=== PATIENT | female | born 1950 | race Caucasian/White ===

== ENCOUNTER 2019-11-15 09:42 | Outpatient (CLI) | payer MEDICARE, SELFPAY ==
--- NOTE | ~2019-11-15 | XR_ITS ---
EXAMINATION: XR chest 2V DATE: 11/15/2019 09:59 INDICATION: Cough. TECHNIQUE: Frontal and lateral views of the chest were obtained. COMPARISON: CT abdomen and pelvis 12/22/2012 FINDINGS: A calcified left lung nodule and calcified mediastinal lymph nodes are consistent with old granulomatous disease. No pleural effusion or pneumothorax. The heart size is normal. There are surgi al clips in the abdomen. There are changes of anterior fusion procedure in cervical spine. There is a left shoulder arthroplasty. IMPRESSION: 1. No acute cardiopulmonary disease. Reviewed, dictated and finalized at location A.
== END 2019-11-15 09:43 | disposition home or self-care (01) ==
LOC: ANHIMG 09:45
PROVIDERS: PCP Internal Medicine; Visit Provider Internal Medicine
DX: R05 Cough (principal)
CPT/HCPCS: 71046

== ENCOUNTER 2019-11-18 11:51 | Emergency (ER) | payer MEDICARE, SELFPAY ==
--- NOTE | ~2019-11-18 | CT_ITS ---
EXAMINATION: CT abdomen pelvis w con DATE: 11/18/2019 13:38 INDICATION: Ventral hernia. Nausea. TECHNIQUE: Computed tomography (CT) of the abdomen and pelvis was performed with 100 mL Omnipaque 350 intravenous contrast. Automated exposure control and iterative reconstruction technique were employe d. The dose-length product was 708.54 mGy-cm. COMPARISON: CT abdomen and pelvis 12/22/2012 FINDINGS: The visualized portions of the lung bases demonstrate mild atelectasis. No pleural effusion . The heart size is normal. There are coronary artery calcifications. No pericardial effusion. There is chronic mild intrahepatic biliary duct dilatation, likely secondary to cholecystectomy. Calcificat ions in the spleen are consistent with old granulomatous disease. The pancreas and adrenal glands are normal. There is cortical thinning of the kidneys. There is a left inguinal hernia containing fat. T here is diverticulosis of the colon without evidence of diverticulitis. There are changes of appendec tristian. There are multiple supraumbilical ventral hernias containing fat. There are no pathologically e nlarged lymph nodes. There is no free intraperitoneal fluid. There are changes of gastric bypass proc edure. There is mild lumbar spondylosis. IMPRESSION: 1. Multiple supraumbilical ventral hernias containing fat. 2. Left inguinal hernia containing fat. Reviewed, dictated and finalized at location A.
[2019-11-18 11:55] VITALS: BP 169/73; PULSE 84; RESP 16; TEMP 37.2; O2SAT 97
[2019-11-18 12:13] VITALS: BP 141/61; PULSE 86; RESP 20; TEMP 36.4; O2SAT 98
--- NOTE | 2019-11-18 12:33 | ED.GENADULT ---
HPI - General Adult General Chief complaint: Unspecified Stated complaint: Multiple Complaints, x3 weeks Time Seen by Provider: 11/18/19 12:02 History of Present Illness HPI narrative: 69 yo female with h/o GERD, gastritis, gastric bypass, ventral abdominal hernia presents from home for nausea. She reports that she has been nauseated for three weeks. She has not been vomiting, but she does have abdominal discomfort with eating. Additionally she reports sore throat. Worse with eating or coughing. This is associated with diarrhea and fatigue. She saw her PCP 2 days ago and had negative CXR and COVID-[address] Garcia and her told her to come to the ED before seeing him in the office. Related Data Allergies Allergy/AdvReac Type Severity Reaction Status Date / Time aspirin Allergy Unknown Unknown Verified 11/18/19 12:15 codeine Allergy Unknown Unknown Verified 11/18/19 12:15 morphine AdvReac Intermediate UPSET Verified 11/18/19 12:15 STOMACH salicylates AdvReac Intermediate UPSET Verified 11/18/19 12:15 STOMACH Review of Systems Review of Systems: All systems reviewed & are unremarkable except as noted in HPI and below Constitutional: Constitutional: Reports fatigue and Denies fever(s) ENT: Reports sore throat Cardiovascular: Cardiovascular: Denies chest pain Respiratory: Respiratory: Reports cough and Denies dyspnea Gastrointestinal: Gastrointestinal: Reports abdominal pain, Reports bloating, Reports diarrhea, Reports nausea and Denies vomiting Genitourinary: Genitourinary: Denies hematuria and Denies dysuria Musculoskeletal: Musculoskeletal: Denies back pain Neurologic: Denies syncope, Reports headache(s) and Denies weakness Endocrine: Endocrine: Denies polydipsia Hematologic/Lymphatic: Hematologic/Lymphatic: Denies easy bleeding and Denies easy bruising PMF Past Medical History Medical History Hyperlipidemia Mild episode of recurrent major depressive disorder Vitamin B12 deficiency Vitamin D deficiency Surgical History Surgical History Hx of fusion of cervical spine Hx of gastric bypass Status post reverse total replacement of left shoulder Family History Family History Father Family history of cardiovascular disease Malignant neoplasm of prostate Sibling Family history of malignant neoplasm of gastrointestinal tract Mother Family history of malignant neoplasm of ovary Social History Social History Smoking status: Former smoker Second hand tobacco smoke exposure: No Smoking end date: 02/17/80 Alcohol intake: never Exam Const: General: healthy appearing, no acute distress and alert Nutritional Appearance: well nourished Orientation/consciousness: patient oriented x3 HENMT: Head: normal to inspection Neck: Neck: normal visual inspection and no lymphadenopathy Resp: Effort & Inspection: normal respiratory effort Auscultation: clear to auscultation bilaterally, no rales, no rhonchi and no wheezes Cardio: Jugular venous distension: no JVD Rate: regular rate Rhythm: regular rhythm Heart sounds: no murmurs GI: Inspection: non-distended GI Palp: Yes Soft to palpation, No Tenderness to palpation present (GI) and Yes Hernia present (large, soft, easily reducible ventral) Skin: General skin exam: normal color and no pallor Neuro: General: patient oriented x3 and moves all extremities Speech: normal speech Gait exam (Neuro): Normal gait present Extrem: General: no edema Psych: Appearance: well kempt Affect: normal affect Course Vital Signs Vital signs: Vital Signs Temperature 37.2 C 11/18/19 11:55 Pulse Rate 84 11/18/19 11:55 Respiratory Rate 16 11/18/19 11:55 Blood Pressure 169/73 H 11/18/19 11:55 Pulse Oximetry 9
[2019-11-18 12:51] LABS: Basophils Absolute Auto 0.1 K/mm3 (0.0-0.1); Eosinophils Absolute Auto 0.2 K/mm3 (0-0.3); Eosinophils Percent Auto 2.9 % (0-4.4); Immature Granulocyte Absolute 0.02 K/mm3 (0.00-0.031); Immature Granulocyte Percent A 0.3 % (0-0.5); Lymphocytes Absolute Auto 2.04 K/mm3 (0.9-3.2); Lymphocytes Percent Auto 25.6 % (18.3-44.2); Mean Corpuscular HGB Conc 34.2 g/dl (32-36); Mean Corpuscular Hemoglobin 32.7 pg (26-34); Mean Corpuscular Volume 95.7 fl (80-100); Mean Platelet Volume 10.6 fl (7.4-10.4); Monocytes Absolute Auto 0.6 K/mm3 (0.1-0.6); Neutrophils Percent Auto 62.2 % (45.5-73.1); Platelet Count Result 296 k/mm3 (150-375); Red Blood Count 3.97 M/mm3 (4.2-5.4); Red Cell Distribution Width 12.4 % (11.5-14.5)
[2019-11-18] MEDS: METOCLOPRAMIDE HCL INJ 10 MG/2 ML VIAL IV PUSH (13:03)
[2019-11-18] MEDS: PANTOPRAZOLE SODIUM IV 40 MG VIAL IV PUSH (13:04)
[2019-11-18] MEDS: SODIUM CHLORIDE 0.9% IV 500 ML 999 ML IV CONT (13:04)
[2019-11-18 13:05] VITALS: BP 126/56; PULSE 81; RESP 20; O2SAT 99
[2019-11-18 13:08] LABS: Alanine Aminotransferase 28 U/L (4-35); Albumin Level 4.5 g/dL (3.5-5.1); Alkaline Phosphatase 65 U/L (38-126); Anion Gap 9 mmol/L (8-16); Aspartate Amino Transferase 38 U/L (14-36); Bilirubin,Total 0.6 mg/dL (0.2-1.3); Blood Urea Nitrogen 20 mg/dL (7-17); Calcium 9.5 mg/dL (8.4-10.2); Carbon Dioxide 26 mmol/L (22-30); Chloride 101 mmol/L (98-107); Estimated CRCL calculation 38 ml/min; Estimated Glomerular Filt Rate 49; Glucose 119 mg/dL (65-105); Lipase 75 U/L (23-300); Potassium 3.3 mmol/L (3.4-5.0); Sodium 136 mmol/L (137-145)
[2019-11-18 14:06] LABS: Add Urine Microscopic? NO; Appearance Urine Clear (Clear); Bilirubin Urine Negative (Negative); Blood Urine Negative (Negative); Color Urine Straw (Yellow); Glucose Urine UA Negative (Negative); Ketones Urine Negative (Negative); Leukocyte Esterase Ur Negative LEU/UL (Negative); Nitrate Urine Negative (Negative); Protein Urine Negative (Negative); Specific Grav Ur 1.017 (1.001-1.035); Urobilinogen Urine Negative mg/dL (<2.0)
[2019-11-18 14:22] VITALS: BP 145/50; PULSE 85; RESP 20; O2SAT 98
[2019-11-18 15:09] VITALS: BP 130/80; PULSE 80; RESP 18; TEMP 36.7; O2SAT 99
== END 2019-11-18 15:10 | disposition home or self-care (01) ==
PROVIDERS: Emergency Provider Emergency Medicine; PCP Internal Medicine
DX: R11.0 Nausea (principal); K21.9 Gastro-esophageal reflux disease without esophagitis; Z98.84 Bariatric surgery status; E78.5 Hyperlipidemia, unspecified; E53.8 Deficiency of other specified B group vitamins; E55.9 Vitamin D deficiency, unspecified; Z87.891 Personal history of nicotine dependence
CPT/HCPCS: 36415; 74177; 80053; 81003; 83690; 85025; 96361; 96374; 96375; 99284; A9270; C9113; J2765; J7040; Q9967

== ENCOUNTER 2019-12-30 01:51 | Outpatient (CLI) | payer MEDICARE, SELFPAY ==
[2019-12-30 19:52] LABS: SARS-CoV-2 RNA PCR Negative
== END 2019-12-30 01:52 | disposition home or self-care (01) ==
LOC: ANHCOVIDDT 01:52
PROVIDERS: PCP Internal Medicine; Visit Provider Internal Medicine Gastroenterology
DX: Z01.812 Encounter for preprocedural laboratory examination (principal); Z20.828 Contact with and (suspected) exposure to other viral communicable diseases
CPT/HCPCS: 87635; C9803; U0003

== ENCOUNTER 2020-01-02 00:26 | Day surgery (SDC) | payer MEDICARE, SELFPAY ==
[2019-12-26 13:44] VITALS: BMI 27.1
[2020-01-02 12:49] VITALS: BP 129/64; PULSE 78; RESP 16; TEMP 37.1; O2SAT 98; BMI 26.9
--- NOTE | 2020-01-02 13:00 | WPDANESEPPF ---
Anes - Initial Pre Proc Eval Procedure: Operation Date: 01/02/20 13:30 Proposed Procedures p Esophagogastroduodenoscopy - Robbie Garcia DO Date/Time: 01/02/20 13:00 Surgeon: Robbie Garcia DO Pre Op Diagnosis: Nausea Patient Data Age: 69 Gender: F Height: 5 ft 1 in Weight: 64.6 kg Last Vital Signs Temp 98.7 F 01/02/20 12:49 Pulse 78 01/02/20 12:49 Resp 16 01/02/20 12:49 BP 129/64 01/02/20 12:49 Pulse Ox 98 01/02/20 12:49 Allergies Allergy/AdvReac Type Severity Reaction Status Date / Time aspirin Allergy Intermediate Nausea and Verified 01/02/20 12:44 Vomiting codeine Allergy Intermediate Nausea and Verified 01/02/20 12:44 Vomiting morphine AdvReac Intermediate UPSET Verified 01/02/20 12:44 STOMACH Home Medications Medication Instructions Recorded Confirmed Type fluoxetine 40 mg capsule 40 mg PO DAILY #90 cap 07/19/19 01/02/20 Rx buspirone 15 mg tablet 15 mg PO DAILY #90 tablet 10/31/19 01/02/20 Rx fluticasone propionate 50 See Rx Instructions .ROUTE 10/31/19 01/02/20 Rx mcg/actuation nasal .COMPLEX #54.6 ml spray,suspension losartan 100 1 tablet PO DAILY #90 tablet 10/31/19 01/02/20 Rx mg-hydrochlorothiazide 12.5 mg tablet amlodipine 2.5 mg tablet See Rx Instructions .ROUTE 11/15/19 01/02/20 Rx .COMPLEX #60 tablet metoclopramide HCl [Reglan] 10 mg PO BID PRN #20 tablet 11/18/19 01/02/20 Rx tramadol 50 mg tablet 50 mg PO QID PRN #120 tablet 11/30/19 12/26/19 Rx zolpidem 5 mg tablet 5 mg PO .QHS #30 tablet 12/01/19 01/02/20 Rx famotidine [Pepcid] 40 mg PO BID 12/26/19 01/02/20 History oxybutynin chloride 10 mg PO DAILY 12/26/19 01/02/20 History Patient hx anesthesia problems: none Family hx anesthesia problems: none PMFSH Past Medical History Medical History (Updated 11/19/19 @ 00:00 by Klaudia Mota) Hyperlipidemia Mild episode of recurrent major depressive disorder Vitamin B12 deficiency Vitamin D deficiency Surgical History Surgical History Hx of fusion of cervical spine Hx of gastric bypass Status post reverse total replacement of left shoulder Family History Family History Father Family history of cardiovascular disease Malignant neoplasm of prostate Sibling Family history of malignant neoplasm of gastrointestinal tract Mother Family history of malignant neoplasm of ovary Social History Social History Smoking status: Never smoker Second hand tobacco smoke exposure: No Smoking end date: 02/17/80 Alcohol intake: never Substance use type: does not use Living arrangements: with family Spiritual care concerns: No Anes - Eval Final PreProcedure Day of Procedure 01/02/20 13:00 Patient weight: normal Heart: regular rate and rhythm Lungs: clear to auscultation Airway: Mallampati scale class II Neurological: alert and oriented Last oral intake: >/= 8 hours ASA classification: III Emergent: no Anesthetic plan: proceed Anesthesia type and monitoring: general GIVS and standard monitoring Informed Consent: The patient's anesthetic plan and its attendant risks and benefits were discussed with the patient/family/POA. Questions were solicited and answers provided to the satisfaction of the patient/family/POA.
[2020-01-02] MEDS: LACTATED RINGERS 1,000 ML 150 ML IV CONT (13:08)
--- NOTE | 2020-01-02 14:22 | PM.IMHP ---
H&P: HPI History of Present Illness Date/Time: 01/02/20 14:22 Chief complaint: Nausea Narrative: Reason for visit EGD. This very pleasant lady sent in consultation request of the primary physician. Impression: Here we have a very pleasant lady with nausea. She is status post previous gastric bypass. We evaluate for underlying peptic ulcer disease. Recommendation: EGD. History: This very pleasant lady with a history of gastric bypass. Patient has been having nausea for the last few weeks. She denies any vomiting, hematemesis, dysphagia odynophagia. She is down approximately 12 lb. Patient complains some loose stools but denies any hematochezia, Melena or acholic stools. The patient went to the emergency room. Laboratory studies were unremarkable. CT imaging was unremarkable. No acute abnormalities were noted. Physical examination: General: very pleasant patient in no acute distress. HEENT: Head was normocephalic sclerae is clear mouth without masses neck was supple. Heart: Rate rhythm regular without S3 or S4. Lungs: CTA. Abdomen: Soft with no guarding or rigidity. Bowel sounds were active. Neurologic: Cranial nerves 2 through 12 intact. No focal defects. No clonus. Musculoskeletal system: Revealed no joint tenderness or swelling no muscle atrophy. Extremities: Reveal no significant edema. Skin: Warm and dry with normal turgor. Mental status: intact. Patient is alert and oriented. Review of Systems Review of Systems: All systems reviewed & are unremarkable except as noted in HPI and below PMFSH Past Medical History Medical History (Updated 01/02/20 @ 14:13 by Robbie Garcia DO) Adenomatous colon polyp Hyperlipidemia Mild episode of recurrent major depressive disorder Vitamin B12 deficiency Vitamin D deficiency Surgical History Surgical History (Updated 01/02/20 @ 14:13 by Robbie Garcia DO) H/O colonoscopy H/O esophagogastroduodenoscopy Hx of fusion of cervical spine Hx of gastric bypass Status post reverse total replacement of left shoulder Family History Family History Father Family history of cardiovascular disease Malignant neoplasm of prostate Sibling Family history of malignant neoplasm of gastrointestinal tract Mother Family history of malignant neoplasm of ovary Social History Social History Smoking status: Never smoker Second hand tobacco smoke exposure: No Smoking end date: 02/17/80 Alcohol intake: never Substance use type: does not use Living arrangements: with family Spiritual care concerns: No Meds Home Medications and Allergies Home Medications Medication Instructions Recorded Confirmed Type fluoxetine 40 mg capsule 40 mg PO DAILY #90 cap 07/19/19 01/02/20 Rx buspirone 15 mg tablet 15 mg PO DAILY #90 tablet 10/31/19 01/02/20 Rx fluticasone propionate 50 See Rx Instructions .ROUTE 10/31/19 01/02/20 Rx mcg/actuation nasal .COMPLEX #54.6 ml spray,suspension losartan 100 1 tablet PO DAILY #90 tablet 10/31/19 01/02/20 Rx mg-hydrochlorothiazide 12.5 mg tablet amlodipine 2.5 mg tablet See Rx Instructions .ROUTE 11/15/19 01/02/20 Rx .COMPLEX #60 tablet metoclopramide HCl [Reglan] 10 mg PO BID PRN #20 tablet 11/18/19 01/02/20 Rx tramadol 50 mg tablet 50 mg PO QID PRN #120 tablet 11/30/19 12/26/19 Rx zolpidem 5 mg tablet 5 mg PO .QHS #30 tablet 12/01/19 01/02/20 Rx famotidine [Pepcid] 40 mg PO BID 12/26/19 01/02/20 History oxybutynin chloride 10 mg PO DAILY 12/26/19 01/02/20 History Allergies Allergy/AdvReac Type Severity Reaction Status Date / Time aspirin Allergy Intermediate Nausea and Verified 01/02/20 12:44 Vomiting codeine Allergy Intermediate Nausea and Verified 01/02/20 12:44 Vomiting morphine AdvReac Intermediate UPSET Verified 01/02/20 12:44 STOMACH Vital Signs Jennifer
[2020-01-02 14:40] VITALS: BP 116/61; PULSE 79; RESP 19; O2SAT 92
[2020-01-02 14:50] VITALS: BP 111/64; PULSE 80; RESP 16; O2SAT 98
[2020-01-02 15:00] VITALS: BP 120/90; PULSE 86; RESP 19; O2SAT 97
== END 2020-01-02 15:14 | disposition home or self-care (01) ==
PROVIDERS: PCP Internal Medicine; Visit Provider Internal Medicine Gastroenterology
PROC: 0DJ08ZZ Inspection of Upper Intestinal Tract, Via Natural or Artificial Opening Endoscopic (ICD-10-PCS; CPT 43235; principal; 2020-01-02 13:30)
DX: R11.0 Nausea (principal); R63.4 Abnormal weight loss; K29.00 Acute gastritis without bleeding; Z98.84 Bariatric surgery status; E55.9 Vitamin D deficiency, unspecified; E78.5 Hyperlipidemia, unspecified; E53.8 Deficiency of other specified B group vitamins; F32.0 Major depressive disorder, single episode, mild
CPT/HCPCS: 43239; 87081; 88305; 88342; J2001; J2704; J7120

== ENCOUNTER 2020-01-06 17:26 | Emergency (ER) | payer MEDICARE, SELFPAY ==
--- NOTE | ~2020-01-06 | XR_ITS ---
EXAMINATION: XR abdomen/kub 1V DATE: 01/06/2020 19:06 INDICATION: Abdominal pain TECHNIQUE: A supine view of the abdomen on 2 radiographs was obtained. COMPARISON: CT dated 11/18/2019 FINDINGS: Postoperative changes in the upper abdomen which on CT appear to correspond to a gastric bypass proce dure. There are additional right abdominal sutures which on CT appear to be related to a likely prior appendectomy. Moderate amount of stool in the colon at the hepatic flexure with small amount of stoo l in the more distal colon. No dilated gas-filled loops of bowel to suggest obstruction. 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 Visual ized lungs are clear. Heart size is normal. Calcified AP window lymph node consistent with old granul omatous disease. Partially visualized reverse left total shoulder arthroplasty. Mild to moderate lumb ar spondylosis. IMPRESSION: 1. Nonobstructive bowel gas pattern with moderate amount of stool at the hepatic flexure of the colon . 2. Postoperative changes as detailed above. Reviewed, dictated and finalized at location H. [facility] [employer] IMPRESSION: 1. Nonobstructive bowel gas pattern with moderate amount of stool at the hepati c flexure of the colon. 2. Postoperative changes as detailed above.
[2020-01-06 17:31] VITALS: BP 151/88; PULSE 92; RESP 18; TEMP 36.8; O2SAT 96
[2020-01-06 18:05] LABS: Basophils Absolute Auto 0.1 K/mm3 (0.0-0.1); Basophils Percent Auto 0.8 % (0.2-1.2); Eosinophils Absolute Auto 0.1 K/mm3 (0-0.3); Eosinophils Percent Auto 1.1 % (0-4.4); Hematocrit 41.3 % (37.0-47.0); Immature Granulocyte Absolute 0.02 K/mm3 (0.00-0.031); Immature Granulocyte Percent A 0.2 % (0-0.5); Lymphocytes Absolute Auto 2.15 K/mm3 (0.9-3.2); Lymphocytes Percent Auto 24.6 % (18.3-44.2); Mean Corpuscular HGB Conc 33.9 g/dl (32-36); Mean Corpuscular Hemoglobin 32.3 pg (26-34); Mean Corpuscular Volume 95.2 fl (80-100); Mean Platelet Volume 10.1 fl (7.4-10.4); Monocytes Absolute Auto 0.7 K/mm3 (0.1-0.6); Monocytes Percent Auto 7.5 % (2.6-8.5); Neutrophils Absolute Auto 5.8 K/mm3 (1.3-6.7); Neutrophils Percent Auto 65.8 % (45.5-73.1); Platelet Count Result 335 k/mm3 (150-375); Red Blood Count 4.34 M/mm3 (4.2-5.4); Red Cell Distribution Width 12.6 % (11.5-14.5); White Blood Count 8.8 K/mm3 (4.5-10.0)
[2020-01-06 18:19] LABS: Alanine Aminotransferase 25 U/L (4-35); Alkaline Phosphatase 85 U/L (38-126); Anion Gap 11 mmol/L (8-16); Aspartate Amino Transferase 35 U/L (14-36); Blood Urea Nitrogen 19 mg/dL (7-17); Calcium 10.1 mg/dL (8.4-10.2); Carbon Dioxide 31 mmol/L (22-30); Chloride 95 mmol/L (98-107); Estimated CRCL calculation 32 ml/min; Estimated Glomerular Filt Rate 41; Glucose 109 mg/dL (65-105); Lipase 56 U/L (23-300); Sodium 137 mmol/L (137-145)
[2020-01-06 19:00] LABS: Add Urine Microscopic? YES; Appearance Urine Clear (Clear); Bacteria Urine Trace /hpf; Bilirubin Urine Negative (Negative); Blood Urine Negative (Negative); Color Urine Straw (Yellow); Glucose Urine UA Negative (Negative); Ketones Urine Negative (Negative); Leukocyte Esterase Ur Negative LEU/UL (Negative); Nitrate Urine Negative (Negative); Protein Urine Negative (Negative); RBC Urine 0-2 /hpf (0-2); Specific Grav Ur 1.009 (1.001-1.035); Squamous Epithelial Cell Urine Occasional /hpf (Few); Urobilinogen Urine Negative mg/dL (<2.0); WBC Urine 0-3 /hpf
[2020-01-06 19:23] VITALS: BP 130/75; PULSE 75; RESP 16; O2SAT 99
--- NOTE | 2020-01-06 19:59 | ED.ABDPAIN ---
HPI - Abdominal Pain General Chief Complaint: Abdominal Pain Stated Complaint: abdominal pain Time Seen by Provider: 01/06/20 17:48 Source: patient Mode of arrival: ambulatory Limitations: no limitations History of Present Illness HPI narrative: Patient presents 1 evaluation of her abdomen after having gas and not having a bowel movement since yesterday. Patient states that she did take a stool softener however she still has not had a bowel movement once a day and so she wanted to make sure that her hernia was not causing problems. Patient has a large umbilical hernia and was told that if her hernia became problematic it will become an emergency. Patient denies intense pain to the area of her hernia. She denies nausea, vomiting, diarrhea. Patient reports that she had an endoscopy performed on Thursday due to having reflux and gastroenteritis. Patient states that she was feeling well until today. Related Data Home Medications Medication Instructions Recorded Confirmed famotidine [Pepcid] 40 mg PO BID 12/26/19 01/02/20 oxybutynin chloride 10 mg PO DAILY 12/26/19 01/02/20 Allergies Allergy/AdvReac Type Severity Reaction Status Date / Time aspirin Allergy Intermediate Nausea and Verified 01/02/20 12:44 Vomiting codeine Allergy Intermediate Nausea and Verified 01/02/20 12:44 Vomiting morphine AdvReac Intermediate UPSET Verified 01/02/20 12:44 STOMACH Review of Systems Review of Systems: Narrative: CONSTITUTIONAL: Denies fever, chills, or sweats. EYES: Denies visual changes, redness, or discharge. ENT: Denies rhinorrhea, congestion, sore throat, or otalgia. CARDIOVASCULAR: Denies chest pain, palpitations, or edema. RESPIRATORY: Denies cough or dyspnea. GASTROINTESTINAL: Reports no bowel movement today in gas denies abdominal pain, nausea, vomiting, or diarrhea. GENITOURINARY: Denies dysuria or hematuria. SKIN: Denies rash or itching. MUSCULOSKELETAL: Denies back pain, joint pain, or myalgia. NEUROLOGIC: Denies headache, numbness, dizziness, or weakness. PSYCHIATRIC: Denies anxiety or depression. [facility] Past Medical History Medical History (Updated 01/06/20 @ 20:05 by Margo Lamas PA-C) Adenomatous colon polyp Hyperlipidemia Mild episode of recurrent major depressive disorder Vitamin B12 deficiency Vitamin D deficiency Surgical History Surgical History (Updated 01/02/20 @ 14:13 by Robbie Garcia DO) H/O colonoscopy H/O esophagogastroduodenoscopy Hx of fusion of cervical spine Hx of gastric bypass Status post reverse total replacement of left shoulder Family History Family History Father Family history of cardiovascular disease Malignant neoplasm of prostate Sibling Family history of malignant neoplasm of gastrointestinal tract Mother Family history of malignant neoplasm of ovary Social History Social History Smoking status: Never smoker Second hand tobacco smoke exposure: No Smoking end date: 02/17/80 Alcohol intake: never Substance use type: does not use Spiritual care concerns: No Exam Narrative: Exam Narrative: GENERAL: Well-appearing, well-nourished, and in no acute distress. HEAD: Normocephalic, atraumatic. EYES: PERRLA and EOMI. CHEST: Clear to auscultation. No respiratory distress. No wheezes rales or rhonchi HEART: Regular rate and rhythm. No murmur heard. Normal peripheral pulses. ABDOMEN: Soft, nontender to palpation,large hernia to the right of umbilical, normal active bowel sounds. SKIN: Warm, dry, no rash. NEURO: No focal deficits. Alert and oriented x3. PSYCH: Normal mood and affect. Course Vital Signs Vital signs: Vital Signs Temperature 98.2 F 01/06/20 17:31 Pulse Rate 92 01/06/20 17:31 Respiratory Rate 18 01/06/20 17:31 Blood Pressure 151/88 H 01/06/20 17:31 Pulse Oximetry 96 01/06/20 17:31 Temperature 98.2 F
== END 2020-01-06 20:28 | disposition home or self-care (01) ==
PROVIDERS: Physician Assistant; Emergency Provider Emergency Medicine; PCP Internal Medicine
DX: K59.00 Constipation, unspecified (principal); K42.9 Umbilical hernia without obstruction or gangrene; Z86.010 Personal history of colon polyps; E78.5 Hyperlipidemia, unspecified; E53.8 Deficiency of other specified B group vitamins; E55.9 Vitamin D deficiency, unspecified; Z98.84 Bariatric surgery status; Z98.1 Arthrodesis status
CPT/HCPCS: 36415; 74018; 80053; 81001; 83690; 85025; 99283

== ENCOUNTER 2020-02-01 14:29 | Outpatient (CLI) | payer MEDICARE, SELFPAY ==
--- NOTE | 2020-02-01 13:45 | ECHO_ITS ---
Patient Info Name: Mariluz Carrasco Age: 69 years : 1950 Gender: Female Ht: 61 in Wt: 140 lbs BSA: 1.67 m2 HR: 78 bpm BP: 150 / 75 mmHg Heart Rhythm: Sinus Rhythm Technical Quality: Good Exam Date: 02/01/2020 2:30 PM Exam Location: [facility] Patient Status: Outpatient Admit Date: 02/01/2020 Staff Ordering Physician: Chris Romero DO Airfield Manager: Satish Perales RDCS Attending Provider: Chris Romero DO Referring Physician: Nick PEÑA; Exam Type: CA echo doppler color flow Study Info Indications R01.1 - Cardiac murmur, unspecified Complete two-dimensional, color flow and Doppler transthoracic echocardiogram is performed. History/Risk Factors Murmur; HTN. Summary 1. Complete two-dimensional, color flow and Doppler transthoracic echocardiogram is performed. 2. Left ventricular chamber dimension is normal. 3. Left ventricular systolic function is normal, estimated at 60-65%. 4. There is mildly increased left ventricular wall thickness. 5. The left ventricular diastolic function is grade I diastolic dysfunction. 6. E/e' 19 is elevated. 7. Left atrial chamber dimension is mildly enlarged. 8. There is mild aortic valve regurgitation. 9. The mitral valve has moderately calcified annulus and moderate bileaflet mitral valve prolapse. 10. There is mild mitral valve regurgitation. 11. There is mild tricuspid valve regurgitation. 12. No pulmonary hypertension, estimated pulmonary arterial systolic pressure is 36 mmHg. 13. There is small circumferential pericardial effusion. Left Ventricle E/e' 19 is elevated. Left ventricular chamber dimension is normal. Left ventricular systolic function is normal, estimated at 60-65%. There is mildly increased left ventricular wall thickness. The left ventricular diastolic function is grade I diastolic dysfunction. Right Ventricle Right ventricular chamber dimension is normal. Right ventricular systolic function is normal. Left Atria Left atrial chamber dimension is mildly enlarged. Right Atria Right atrial chamber dimension is normal. Aortic Valve The aortic valve is trileaflet. There is no aortic valve stenosis. There is mild aortic valve regurgitation. Pulmonic Valve There is no pulmonic regurgitation. Mitral Valve The mitral valve has moderately calcified annulus and moderate bileaflet mitral valve prolapse. There is no mitral valve stenosis. There is mild mitral valve regurgitation. Tricuspid Valve There is mild tricuspid valve regurgitation. No pulmonary hypertension, estimated pulmonary arterial systolic pressure is 36 mmHg. Pericardium/Pleural There is small circumferential pericardial effusion. Inferior Vena Cava Normal inferior vena cava with >50% collapse upon inspiration consistent with normal right atrial pressure, 5 mmHg. Aorta The aortic root size at the sinus of Valsalva is normal. Left Ventricular Outflow Tract Name Value Normal LVOT 2D LVOT Diameter 2.0 cm LVOT Doppler LVOT Peak Gradient 3 mmHg LVOT Mean Gradient 2 mmHg
== END 2020-02-01 14:30 | disposition home or self-care (01) ==
PROVIDERS: PCP Internal Medicine; Visit Provider Internal Medicine
DX: R01.1 Cardiac murmur, unspecified (principal); I35.1 Nonrheumatic aortic (valve) insufficiency; I34.0 Nonrheumatic mitral (valve) insufficiency; I36.1 Nonrheumatic tricuspid (valve) insufficiency; I51.9 Heart disease, unspecified
CPT/HCPCS: 93306

== ENCOUNTER 2020-11-25 15:59 | Emergency (ER) | payer MEDICARE, SELFPAY ==
--- NOTE | ~2020-11-25 | CT_ITS ---
EXAMINATION: CT brain wo con DATE: 11/25/2020 16:41 INDICATION: Fall with head injury TECHNIQUE: Computed tomography (CT) of the head was performed without intravenous contrast. Sagittal and coronal reconstructions were performed. The mA was adjusted according to patient size. Iterative reconstruction technique was employed. The dose-length product was 605.33 mGy-cm. COMPARISON: None FINDINGS: No fracture. No acute intracranial hemorrhage, acute infarction or abnormal extra axial fluid collect ion. There is mild to moderate scattered white matter hypoattenuation consistent with chronic small v essel ischemic disease. Symmetric prominence of the sulci consistent with mild age-appropriate diffus e cerebral volume loss. Ventricles are normal and symmetric. No mass/mass effect. The orbits, parana sussy sinuses and mastoid air cells are normal. IMPRESSION: 1. No fracture or acute intracranial process. 2. Age-related changes including mild diffuse volume loss and mild to moderate scattered white matter hypoattenuation consistent with chronic small vessel ischemic disease. Reviewed, dictated and finalized at location A. IMPRESSION: 1. No fracture or acute intracranial process. 2. Age-related changes including mild diffuse volume loss and mild to moderate scattered white matter hypoattenuation consistent with chronic small vessel isc hemic disease.
--- NOTE | ~2020-11-25 | CT_ITS ---
EXAMINATION: 1. CT facial & cervical spine wo DATE: 11/25/2020 16:41 INDICATION: Fall with left-sided head injury and neck pain TECHNIQUE: 1. Computed tomography (CT) of the maxillofacial region and of the cervical spine were performed with out intravenous contrast. Sagittal and coronal reconstructions of both regions were obtained. Automat ed exposure control and iterative reconstruction technique were employed. The dose-length product was 156.09 mGy-cm. COMPARISON: None. FINDINGS: Maxillofacial CT: No maxillofacial fractures. Specifically the nasal bones, goff of the orbits and paranasal sinuses, zygomatic arches and mandible and pterygoid plates are intact. Normal alignment at the bilateral temp oromandibular joints. Minimal rightward bowing of the nasal septum with right-sided spike. Orbits are normal. Mild mucosal thickening at the bilateral frontoethmoidal recesses. Soft tissue swelling and subcutaneous stranding consistent with contusion overlying the left anterior mandible. Cervical spine CT: C6-C7 anterior spinal fusion with solid fusion and anterior plate and screw fixation. 2-3 mm anteroli sthesis C5 on C6. Alignment is otherwise normal. Unfused vertebral body heights are normal. Mild disc height loss at C7-T1 and minimal at C4-C5 and C5-C6. Severe facet osteoarthritis on the right at C5- C6. Moderate facet osteoarthritis on the left at C7-T1. Otherwise mild multilevel bilateral cervical facet osteoarthritis. No significant central canal or neural foraminal stenosis. Cervical soft tissue s are unremarkable. Minimal biapical pleural-parenchymal scarring. IMPRESSION: 1. No maxillofacial or cervical fractures. 2. Mild cervical spondylosis with instrumented C6-C7 anterior spinal fusion. Reviewed, dictated and finalized at location A.
[2020-11-25 16:05] VITALS: BP 137/59; PULSE 88; RESP 16; TEMP 36.9; O2SAT 99
--- NOTE | 2020-11-25 22:00 | ED.GENADULT ---
HPI - General Adult General Chief complaint: Fall Stated complaint: SNAKE BITE Time Seen by Provider: 11/25/20 16:13 Source: patient Mode of arrival: ambulatory Limitations: no limitations History of Present Illness HPI narrative: Patient presents with complaint of bruising and swelling to her left lower jaw and laceration to her left forehead and neck pain that she sustained after tripping and falling on the concrete while trying to evade a snake. Patient denies loss of consciousness. Patient reports that she has had cervical fusion in the past. Patient is able to open her mouth. Patient denies neurological deficits. She denies any burning from her orifices. Patient denies any other injuries or concerns. Patient states that she was not bitten by a snake. Related Data Home Medications Medication Instructions Recorded Confirmed famotidine [Pepcid] 40 mg PO BID 12/26/19 10/18/20 Allergies Allergy/AdvReac Type Severity Reaction Status Date / Time aspirin Allergy Intermediate Nausea and Verified 11/25/20 16:50 Vomiting codeine Allergy Intermediate Nausea and Verified 11/25/20 16:50 Vomiting morphine AdvReac Intermediate UPSET Verified 11/25/20 16:50 STOMACH Review of Systems Review of Systems: CONSTITUTIONAL: Denies fever, chills, or sweats. EYES: Denies visual changes, redness, or discharge. ENT: Denies rhinorrhea, congestion, sore throat, or otalgia. CARDIOVASCULAR: Denies chest pain, palpitations, or edema. RESPIRATORY: Denies cough or dyspnea. GASTROINTESTINAL: Denies abdominal pain, nausea, vomiting, or diarrhea. GENITOURINARY: Denies dysuria or hematuria. SKIN: Reports abrasion and laceration denies rash or itching. MUSCULOSKELETAL: Reports head and neck pain denies back pain, joint pain, or myalgia. NEUROLOGIC: Denies headache, numbness, dizziness, or weakness. PSYCHIATRIC: Denies anxiety or depression. [facility] Past Medical History Medical History (Updated 11/25/20 @ 17:53 by Margo Lamas PA-C) Adenomatous colon polyp Hyperlipidemia Mild episode of recurrent major depressive disorder Vitamin B12 deficiency Vitamin D deficiency Surgical History Surgical History H/O colonoscopy H/O esophagogastroduodenoscopy Hx of fusion of cervical spine Hx of gastric bypass Status post reverse total replacement of left shoulder Family History Family History Father Family history of cardiovascular disease Malignant neoplasm of prostate Sibling Family history of malignant neoplasm of gastrointestinal tract Mother Family history of malignant neoplasm of ovary Social History Social History Second hand tobacco smoke exposure: No Smoking end date: 02/17/80 Alcohol intake: never Substance use type: does not use Spiritual care concerns: No Exam Narrative: GENERAL: Well-appearing, well-nourished, and in no acute distress. HEAD: 2 cm nongaping laceration to the left forehead. Minimal bleeding. Bruising to the lower left jaw. EYES: PERRLA and EOMI. ENT: Nares clear, no rhinorrhea or epistaxis. Mucous membranes moist. Oropharynx without tonsillar hypertrophy exudate or other lesions. Bilateral TMs pearly goss nonbulging. No hemotympanum. NECK: Supple. No adenopathy or masses. Diffuse tenderness. No bony step-offs palpated. C-collar applied. CHEST: Clear to auscultation. No respiratory distress. No wheezes rales or rhonchi HEART: Regular rate and rhythm. ABDOMEN: Soft, nontender, nondistended, normal active bowel sounds. EXTREMITIES: Normal range of motion. No edema. SKIN: Warm, dry, no rash. NEURO: No focal deficits. Alert and oriented x3. PSYCH: Normal mood and affect. Course Vital Signs Vital signs: Vital Signs Temperature 98.5 F 11/25/20 16:05 Pulse Rate 88 11/25/20 16:05 Respiratory Rate 16 11/25/20 16:05 Blood Press
== END 2020-11-25 18:40 | disposition home or self-care (01) ==
PROVIDERS: Emergency Provider Emergency Medicine; PCP Internal Medicine
DX: S01.81XA Laceration without foreign body of other part of head, initial encounter (principal); S00.83XA Contusion of other part of head, initial encounter; E78.5 Hyperlipidemia, unspecified; E53.8 Deficiency of other specified B group vitamins; E55.9 Vitamin D deficiency, unspecified; Z86.010 Personal history of colon polyps; Z98.1 Arthrodesis status; Z98.84 Bariatric surgery status; Z96.612 Presence of left artificial shoulder joint; Z87.891 Personal history of nicotine dependence; M47.812 Spondylosis without myelopathy or radiculopathy, cervical region; W01.0XXA Fall on same level from slipping, tripping and stumbling without subsequent striking against object, initial encounter
CPT/HCPCS: 70450; 70486; 72125; 99284; L0140

== ENCOUNTER 2021-10-08 08:52 | Emergency (ER) | payer MEDICARE, SELFPAY ==
[2021-10-08] VITALS (24 sets, daily range): BP systolic 142–179; BP diastolic 57–78; PULSE 76–96; RESP 16–22; TEMP 36.8; O2SAT 94–100
--- NOTE | ~2021-10-08 | CT_ITS ---
EXAMINATION: CT abdomen pelvis w con DATE: 10/08/2021 11:06 INDICATION: Constipation. Hernia. Abdominal pain and nausea. TECHNIQUE: Computed tomography (CT) of the abdomen and pelvis was performed with 100 mL Omnipaque-300 intravenous contrast. Automated exposure control and iterative reconstruction technique were employe d. The dose-length product was 337.22 mGy-cm. COMPARISON: None FINDINGS: Mild dependent atelectasis in the right lower lobe. No pleural effusion. Heart size is normal. Very s mall pericardial effusion. Gallbladder is not visualized and likely surgically absent. Postoperative change of prior gastric bypass procedure with additional suture line in the region of the gastric pyl orus. Multiple splenic calcifications consistent with old granulomatous disease. 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 Liver, pancreas, bilateral adrenal glands are normal. Small bowel is mendel l. Visualized appendix with surgical clips near the tip of the appendix likely related to prior appen dectomy. There are few diverticula at the junction of the sigmoid and descending colon without adjace nt inflammatory change to suggest diverticulitis. A large supraumbilical ventral hernia measuring 10.9 x 6 0.9 to 10.6 cm which contains a segment of l ikely at least partially obstructed: With large amount of stool within the herniated portion of the c olon and the more proximal colon and with transition point to relatively decompressed more distal tra nsverse and descending colon with small amounts of additional stool in the sigmoid colon. The orifice of the hernia measures 3.9 x 3.7 cm. Contrast enhanced draining mesenteric veins are seen extending from the herniated segment of colon. The uterus is not identified and has likely been surgically resected. Bladder is normal. Small amount of either reactive or physiologic free fluid in the deep pelvis. No abscess or free intraperitoneal gas. No pathologically enlarged abdominal or pelvic lymphadenopathy. Very small fat-containing left i nguinal hernia. Chronic L5 compression fracture with 50% central and posterior vertebral body height loss. 4 mm anterolisthesis L4 on L5. Severe lower lumbar spine facet osteoarthritis. IMPRESSION: 1. Supraumbilical ventral hernia containing a segment of at least partially obstructed transverse col on with large amount of more proximal colonic stool. Reviewed, dictated and finalized at location A. IMPRESSION: 1. Supraumbilical ventral hernia containing a segment of at least partially obs tructed transverse colon with large amount of more proximal colonic stool.
[2021-10-08 09:28] LABS: Basophils Absolute Auto 0.1 K/mm3 (0.0-0.1); Basophils Percent Auto 0.7 % (0.2-1.2); Eosinophils Absolute Auto 0.1 K/mm3 (0-0.3); Eosinophils Percent Auto 1.1 % (0-4.4); Hematocrit 40.2 % (37.0-47.0); Hemoglobin 12.9 g/dL (12.0-15.0); Immature Granulocyte Absolute 0.03 K/mm3 (0.00-0.031); Immature Granulocyte Percent A 0.4 % (0-0.5); Lymphocytes Absolute Auto 1.37 K/mm3 (0.9-3.2); Lymphocytes Percent Auto 16.2 % (18.3-44.2); Mean Corpuscular HGB Conc 32.1 g/dl (32-36); Mean Corpuscular Hemoglobin 31.7 pg (26-34); Mean Corpuscular Volume 98.8 fl (80-100); Monocytes Absolute Auto 0.9 K/mm3 (0.1-0.6); Monocytes Percent Auto 10.8 % (2.6-8.5); Neutrophils Percent Auto 70.8 % (45.5-73.1); Platelet Count Result 315 k/mm3 (150-375); Red Blood Count 4.07 M/mm3 (4.2-5.4); Red Cell Distribution Width 12.9 % (11.5-14.5); White Blood Count 8.4 K/mm3 (4.5-10.0)
--- NOTE | 2021-10-08 09:42 | ED.ABDPAIN ---
HPI - Abdominal Pain General Chief Complaint: Abdominal Pain Stated Complaint: hernia? Time Seen by Provider: 10/08/21 09:29 History of Present Illness HPI narrative: 71-year-old female presents to the ER today for right-sided abdominal pain and constipation. She has a known hernia in the abdominal wall. She says that the hernia has been feeling hard and tender since yesterday. She has been having a hard time having bowel movements. No nausea or vomiting. She has not had any fever or chills. She has a history of gastric bypass and reports that this is where she ended up getting the hernia from. She has been very resistant in the past to getting the hernia repaired because she is afraid of complications. Patient is tearful and anxious in the exam room today. Related Data Allergies Allergy/AdvReac Type Severity Reaction Status Date / Time aspirin AdvReac Intermediate Nausea and Verified 10/08/21 14:31 Vomiting codeine AdvReac Intermediate Nausea and Verified 10/08/21 14:31 Vomiting morphine AdvReac Intermediate UPSET Verified 10/08/21 09:02 STOMACH Review of Systems Review of Systems: CONSTITUTIONAL: Denies fever, chills, or sweats. EYES: Denies visual changes, redness, or discharge. ENT: Denies rhinorrhea, congestion, sore throat, or otalgia. CARDIOVASCULAR: Denies chest pain, palpitations, or edema. RESPIRATORY: Denies cough or dyspnea. GASTROINTESTINAL: Large non-reducible hernia right abdominal wall, hard, tender, Bowels sounds left abdomen GENITOURINARY: Denies dysuria or hematuria. SKIN: Denies rash or itching. MUSCULOSKELETAL: Denies back pain, joint pain, or myalgia. NEUROLOGIC: Denies headache, numbness, dizziness, or weakness. PSYCHIATRIC: Denies anxiety or depression. [facility] Past Medical History Medical History Adenomatous colon polyp Hyperlipidemia Mild episode of recurrent major depressive disorder Vitamin B12 deficiency Vitamin D deficiency Surgical History Surgical History H/O colonoscopy H/O esophagogastroduodenoscopy Hx of fusion of cervical spine Hx of gastric bypass Status post reverse total replacement of left shoulder Family History Family History Father Family history of cardiovascular disease Malignant neoplasm of prostate Sibling Family history of malignant neoplasm of gastrointestinal tract Mother Family history of malignant neoplasm of ovary Social History Social History Smoking status: Former smoker Second hand tobacco smoke exposure: No Smoking end date: 02/17/80 Alcohol intake: never Substance use type: does not use Spiritual care concerns: No Course Course Emergency Course: [address] Hernandez. He is going to come see the patient in the ER to try to manually reduce the hernia. 1500 Dr. Hernandez at bedside. He was able to manually reduce the hernia. Pt placed in abdominal binder. Plan to discharge to home and he will see her for follow up for definative care. Vital Signs Vital signs: Vital Signs Temperature 36.8 C 10/08/21 08:59 Pulse Rate 96 10/08/21 08:59 Respiratory Rate 20 10/08/21 08:59 Blood Pressure 179/76 H 10/08/21 08:59 Pulse Oximetry 99 10/08/21 08:59 Oxygen Delivery Room Air 10/08/21 08:59 Temperature 36.8 C 10/08/21 08:59 Pulse Rate 79 10/08/21 10:24 Respiratory Rate 22 H 10/08/21 10:24 Blood Pressure 142/59 H 10/08/21 13:15 Pulse Oximetry 95 10/08/21 13:15 Oxygen Delivery Room Air 10/08/21 08:59 MDM - Abdominal Pain Differential Diagnosis Differential diagnosis: Likely abdominal pain, constipation, small bowel obstruction and other (hernia) Lab Data Result diagrams: 10/08/21 09:13 10/08/21 09:13 Labs: Lab Results
[2021-10-08 09:46] LABS: Appearance Urine Clear (Clear); Bilirubin Urine Negative (Negative); Blood Urine Negative (Negative); Color Urine Yellow (Yellow); Glucose Urine UA Trace mg/dL (Negative); Ketones Urine Trace mg/dL (Negative); Leukocyte Esterase Ur Negative LEU/UL (Negative); Nitrate Urine Negative (Negative); Protein Urine Negative (Negative); Specific Grav Ur 1.015 (1.001-1.035); Urobilinogen Urine 0.2 mg/dL (<2.0); pH Urine 8.5 (5.0-9.0)
[2021-10-08 09:52] LABS: Mucus Urine Rare /lpf; RBC Urine 0-2 /hpf (0-2); Renal Epithelial Cells Urine Rare /hpf (None Seen); Squamous Epithelial Cell Urine Rare /hpf (Few); WBC Urine 0-3 /hpf
[2021-10-08 09:56] LABS: Add Urine Microscopic? YES
[2021-10-08] MEDS: ONDANSETRON INJ 4 MG/2 ML VIAL IV PUSH (10:04)
[2021-10-08] MEDS: fentaNYL CITRATE INJ (*CRX) 100 MCG/2 ML VIAL 25 MCG IV PUSH (10:04)
[2021-10-08] MEDS: SODIUM CHLORIDE 0.9% IV 2,000 ML 500 ML IV CONT (10:04)
[2021-10-08 10:31] LABS: Lactic Acid Reflex 1.5 mmol/L (0.7-2.0)
[2021-10-08 10:32] LABS: Alkaline Phosphatase 90 U/L (38-126); Anion Gap 14 mmol/L (8-16); Aspartate Amino Transferase 49 U/L (14-36); Bilirubin,Total 1.1 mg/dL (0.2-1.3); Blood Urea Nitrogen 17 mg/dL (7-17); Calcium 9.4 mg/dL (8.4-10.2); Carbon Dioxide 26 mmol/L (22-30); Chloride 94 mmol/L (98-107); Estimated CRCL calculation 29 ml/min; Estimated Glomerular Filt Rate 44; Glucose 145 mg/dL (65-110); Lipase 52 U/L (23-300); Potassium 3.8 mmol/L (3.4-5.0); Sodium 134 mmol/L (137-145)
[2021-10-08 10:35] LABS: Alanine Aminotransferase 31 U/L (6-35)
[2021-10-08] MEDS: fentaNYL CITRATE INJ (*CRX) 100 MCG/2 ML VIAL 50 MCG IV PUSH ×2 (12:53→14:35)
--- NOTE | 2021-10-08 13:23 | PC.NURSE ---
pt given ice pack and informed to keep knees bent per [employer] @ [id number]
--- NOTE | 2021-10-08 15:13 | PM.CNGS ---
Assessment and Plan Assessment and plan (1) Incarcerated incisional hernia: Code(s): K43.0 - Incisional hernia with obstruction, without gangrene Status: Acute Assessment and Plan: CT scan was reviewed and discussed with the patient in detail. I was able to manually reduce her incisional ventral hernia in the ER. This was containing a segment of the transverse colon, which was stool-filled, and causing at least a partial bowel obstruction. Now that the hernia is reduced and no longer incarcerated and without any evidence of strangulation, the patient's hernia repair can be done electively rather than urgently. We ordered an abdominal binder and showed her how to use this in the ER. We instructed her to keep the abdominal binder on throughout the night tonight and tomorrow. Then she can remove it tomorrow night when she goes to bed if the hernia remains reduced. She should continue clear liquids tonight and if feeling well, then she should take 1 dose of MiraLax and a stool softener [id number] tonight. Instructed her to take MiraLax twice a day, as well as a stool softener daily for her constipation. If her bowels are moving well with more than 3 bowel movements daily and her hernia remains reduced without pain, then she can reduce this to once daily MiraLax. She should continue to wear her abdominal binder every day and may remove it at night if not having any problems starting tomorrow. We also educated the patient on how to manually massaged and try to reduce her hernia at home if she notices the bulge come back out. Instructed her to call the office to schedule a follow-up appointment with Dr. Hernandez to discuss elective hernia repair. We discussed signs of incarceration and strangulation, and when to present back to the ER if this occurs before her appointment. (2) Large bowel obstruction: Code(s): K56.609 - Unspecified intestinal obstruction, unspecified as to partial versus complete obstruction Status: Acute Assessment and Plan: Secondary to the incarcerated incisional hernia. CT scan suggests dilated proximal stool-filled colon. This should be resolved now that the hernia is reduced. Instructed the patient to follow a clear liquid diet for tonight and she may slowly advance her diet starting tomorrow if no further nausea and her hernia remains reduced. (3) Constipation: Code(s): K59.00 - Constipation, unspecified Status: Acute Assessment and Plan: Would recommend starting a bowel regimen to prevent constipation. Also instructed her to stop taking fiber supplements for at least the next 3-4 days. See plan above. (4) Hx of gastric bypass: Code(s): Z98.84 - Bariatric surgery status Status: Acute Assessment and Plan: This was done at [facility] about 50 years ago. She has a history of gastritis from an EGD in 2019 and continues to take Pepcid and sucralfate regularly, and admits to additionally taking Nexium as needed. Instructed the patient to continue taking Pepcid and sucralfate as prescribed. (5) Anxiety and depression: Code(s): F41.9 - Anxiety disorder, unspecified; F32.9 - Major depressive disorder, single episode, unspecified Status: Chronic (6) Benign essential hypertension: Code(s): I10 - Essential (primary) hypertension Status: Acute Plan I have discussed the patient's case and plan of care with Dr. Hernandez who also saw the patient in the ER during my exam. History of Present Illness Consult details Consult date: 10/08/21 Reason for consult: other (Incarcerated ventral incisional hernia containing colon with secondary obstruction) Requesting physician: Amy Conner, EMILY Narrative: This is a 71-year-old female with a history of hypertension, bladder incontinence, depression and anxiety, who presented to the ER with abdominal pain and nausea. The patient had a gastric bypass about 50 years ago at
== END 2021-10-08 15:42 | disposition home or self-care (01) ==
PROVIDERS: Preventive Medicine Aerospace Medicine; Emergency Provider Nurse Practitioner Family; PCP Internal Medicine
DX: K43.0 Incisional hernia with obstruction, without gangrene (principal); K59.00 Constipation, unspecified; F41.9 Anxiety disorder, unspecified; F32.A Depression, unspecified; I10 Essential (primary) hypertension; E78.5 Hyperlipidemia, unspecified; E53.8 Deficiency of other specified B group vitamins; E55.9 Vitamin D deficiency, unspecified; Z98.1 Arthrodesis status; Z98.84 Bariatric surgery status; Z96.612 Presence of left artificial shoulder joint; Z86.010 Personal history of colon polyps; Z87.891 Personal history of nicotine dependence; R32 Unspecified urinary incontinence; Z90.710 Acquired absence of both cervix and uterus; Z90.722 Acquired absence of ovaries, bilateral
CPT/HCPCS: 36415; 74177; 80053; 81001; 83605; 83690; 85025; 96361; 96374; 96375; 96376; 99284; J2405; J3010; J7030; Q9967

== ENCOUNTER 2021-10-23 11:15 | Outpatient (CLI) | payer MEDICARE, SELFPAY ==
--- NOTE | 2021-10-23 11:32 | ECG_ITS ---
Measurements Intervals [place] Rate: 72 P: 35 MN: 147 QRS: -12 QRSD: 103 T: -7 QT: 367 QTc: 403 Interpretive Statements SINUS RHYTHM POSSIBLE LEFT ATRIAL ENLARGEMENT DELAYED PRECORDIAL R/S TRANSITION BORDERLINE T WAVE ABNORMALITY- ANTEROLAT/INF LEADS BASELINE ARTIFACT- I, II, III, AVR, AVL, AVF BORDERLINE ECG NO PREVIOUS ECG AVAILABLE FOR COMPARISON Electronically Signed On 10-23-2021 12:43:52 CDT by Prashant Miranda D.O.
[2021-10-23 12:06] LABS: Basophils Absolute Auto 0.1 K/mm3 (0.0-0.1); Basophils Percent Auto 0.9 % (0.2-1.2); Eosinophils Absolute Auto 0.2 K/mm3 (0-0.3); Hematocrit 33.7 % (37.0-47.0); Immature Granulocyte Absolute 0.03 K/mm3 (0.00-0.031); Immature Granulocyte Percent A 0.4 % (0-0.5); Lymphocytes Absolute Auto 1.49 K/mm3 (0.9-3.2); Lymphocytes Percent Auto 21.3 % (18.3-44.2); Mean Corpuscular HGB Conc 32.6 g/dl (32-36); Mean Corpuscular Hemoglobin 32.2 pg (26-34); Mean Corpuscular Volume 98.5 fl (80-100); Mean Platelet Volume 9.6 fl (7.4-10.4); Monocytes Absolute Auto 0.6 K/mm3 (0.1-0.6); Monocytes Percent Auto 7.9 % (2.6-8.5); Neutrophils Absolute Auto 4.6 K/mm3 (1.3-6.7); Neutrophils Percent Auto 66.5 % (45.5-73.1); Platelet Count Result 287 k/mm3 (150-375); Red Blood Count 3.42 M/mm3 (4.2-5.4); Red Cell Distribution Width 13.1 % (11.5-14.5)
[2021-10-23 12:20] LABS: Alanine Aminotransferase 26 U/L (6-35); Albumin Level 4.2 g/dL (3.5-5.1); Alkaline Phosphatase 66 U/L (38-126); Anion Gap 8 mmol/L (8-16); Aspartate Amino Transferase 40 U/L (14-36); Bilirubin,Total 0.6 mg/dL (0.2-1.3); Blood Urea Nitrogen 18 mg/dL (7-17); Calcium 9.1 mg/dL (8.4-10.2); Carbon Dioxide 26 mmol/L (22-30); Chloride 99 mmol/L (98-107); Estimated Glomerular Filt Rate 55; Glucose 104 mg/dL (65-110); Magnesium 2.5 mg/dL (1.6-2.3); Potassium 4.6 mmol/L (3.4-5.0); Sodium 133 mmol/L (137-145)
== END 2021-10-23 11:16 | disposition home or self-care (01) ==
LOC: ANHSURGERY 11:20
PROVIDERS: PCP Internal Medicine; Visit Provider Surgery
DX: Z01.818 Encounter for other preprocedural examination (principal); K43.2 Incisional hernia without obstruction or gangrene
CPT/HCPCS: 36415; 80053; 83735; 85025; 86850; 86900; 86901; 93005

== ENCOUNTER 2021-10-28 01:04 | Day surgery (SDC) | payer MEDICARE, SELFPAY ==
--- NOTE | 2021-10-17 14:29 | PC.NURSE ---
Report to the Outpatient Waiting Room, entrance under the green pavilion located off [facility], at time 0830 on date __10/28/21 . OR Time: _1030 . - You and your visitor will be asked to self-screen and do not enter if you have any COVID symptoms. - Only one visitor and NO children visitors are allowed at this time. - The patient visitor is requested to leave or wait in car when not with patient due to restrictions. - A mask is required within the hospital. Patients may have clear liquids (water, carbonated beverages, clear teas, apple juice) until 3 hours prior to surgery with a maximum of 20 ounces. - No food from midnight until time of surgery - Infants may have breast milk until 4 hours before surgery, infant formula 6 hours prior to surgery. - Children will be allowed to drink immediately following surgery. If applicable, please bring a bottle or sippy cup to assist with drinking. Juice, water, soda, and popsicles are readily available. For infants on formula, please bring formula the day of surgery. Pacifiers are allowed. Take the following medications with a SIP of water the morning of surgery: ____NONE Medications to discontinue per physician ___ALL VITAMINS AND SUPPLEMENTS 3 DAYS PRE OP Date to take last dose___10/24/21 Please no make-up, nail nepali, hairspray, perfume, deodorant, or body powder the day of surgery. No jewelry (including any body piercings) or valuables the day of surgery, leave them at home. Please take a shower or bath the night before, or the morning of, surgery with an antibacterial soap. Wear comfortable, loose fitting clothing. Children are encouraged to wear pajamas. - Jewelry must be removed prior to entering the operating room. Rings and piercings that are not removed may be cut off. - The hospital will not accept responsibility for valuables. HIBICLENS SHOWER MORNING OF SURGERY - Please leave all valuables, including medications, at home the day of surgery. If you are going home after surgery, a licensed trackless trolley driver must drive you home. - NO public transportation without another adult. - We recommend that an adult stay with you for 24 hours following discharge. - We also recommend that you do not drive, make important decision, drink alcoholic beverages, or take any drugs that were not prescribed by your health care provider for at least 24 hours after your discharge time. For Pediatric surgeries, we recommend two adults accompany the child home (only one inside the building at this time). Follow any additional instructions given to you from your surgeon. If you or anyone in your household have experienced Covid symptoms in the past week, please notify your surgeon or the nurse liaison at the phone number below for possible testing. Telephone instructions given to __PATIENT and asked if any additional questions and then verbalized understanding. Patient advised to call surgeon office or pre surgery nurse liaison [phone] if any additional questions.
[2021-10-17 14:38] VITALS: BMI 23.2
[2021-10-28] VITALS (9 sets, daily range): BP systolic 129–156; BP diastolic 46–72; PULSE 77–94; RESP 14–16; TEMP 36.6–37.2; O2SAT 93–100
[2021-10-28] MEDS: ACETAMINOPHEN 500 MG TABLET 1000 MG PO (08:42)
--- NOTE | 2021-10-28 09:42 | WPDANESEPPF ---
Anes - Initial Pre Proc Eval Procedure: Operation Date: 10/28/21 10:30 Proposed Procedures p Laparoscopic Possible Open Ventral Incisional Hernia Repair with Mesh - Joel Hernandez MD Date/Time: 10/28/21 09:42 Surgeon: Joel Hernandez MD Pre Op Diagnosis: ventral incisional hernia Patient Data Age: 71 Gender: F Height: 1.55 m Weight: 54 kg Last Vital Signs Temp 36.6 C 10/28/21 08:51 Pulse 94 10/28/21 08:51 Resp 16 10/28/21 08:51 BP 129/58 L 10/28/21 08:51 Pulse Ox 97 10/28/21 08:51 O2 Del Method Room Air 10/28/21 08:51 Allergies Allergy/AdvReac Type Severity Reaction Status Date / Time aspirin AdvReac Intermediate Nausea and Verified 10/28/21 08:36 Vomiting codeine AdvReac Intermediate Nausea and Verified 10/28/21 08:36 Vomiting morphine AdvReac Intermediate UPSET Verified 10/28/21 08:36 STOMACH Home Medications Medication Instructions Recorded Confirmed Type fluoxetine 40 mg capsule See Rx Instructions .Route 10/05/20 10/28/21 Rx .COMPLEX #90 caps ondansetron HCl 4 mg tablet 4 mg PO Q8H #90 tabs 05/01/21 10/17/21 Rx oxybutynin chloride 10 mg 10 mg PO DAILY #90 tabs 06/03/21 10/28/21 Rx tablet,extended release 24 hr fluticasone propionate 50 See Rx Instructions .Route 07/02/21 10/28/21 Rx mcg/actuation nasal .COMPLEX #48 grams spray,suspension losartan 100 See Rx Instructions .Route 07/02/21 10/28/21 Rx mg-hydrochlorothiazide 12.5 mg .COMPLEX #90 tabs tablet sucralfate 1 gram tablet (Carafate) 1 g PO QID #360 tabs 07/29/21 10/28/21 Rx famotidine 20 mg tablet 20 mg PO BID #180 tabs 09/30/21 10/28/21 Rx tramadol 50 mg tablet (Ultram) 50 mg PO QID PRN pain #120 tabs 10/11/21 10/28/21 Rx Lactobacillus acidophilus 10 10,000 mmu cells PO DAILY 10/17/21 10/28/21 History billion cell capsule (Probiotic) calcium carbonate 600 mg-vitamin 1 tablet PO DAILY 10/17/21 10/28/21 History D3 10 mcg (400 unit) tablet (Calcium 600 + D(3)) cholecalciferol (vitamin D3) 50 50 mcg PO DAILY 10/17/21 10/28/21 History mcg (2,000 unit) tablet docusate sodium 50 mg capsule 50 mg PO DAILY 10/17/21 10/28/21 History (Stool Softener) garlic 1,000 mg capsule 1,000 mg PO DAILY 10/17/21 10/28/21 History magnesium 500 mg tablet 500 mg PO DAILY 10/17/21 10/28/21 History multivitamin 1 tablet PO DAILY 10/17/21 10/28/21 History turmeric 400 mg capsule 400 mg PO DAILY 10/17/21 10/28/21 History Patient hx anesthesia problems: none Family hx anesthesia problems: none Results Review: All pre-operative results and documents have been reviewed as part of the pre-operative evaluation. [facility] Past Medical History Medical History Adenomatous colon polyp Anxiety and depression Bladder incontinence Cardiac murmur Hyperlipidemia Hypertension Mild episode of recurrent major depressive disorder Vitamin B12 deficiency Vitamin D deficiency Surgical History Surgical History H/O colonoscopy 2019 with benign polypectomy H/O esophagogastroduodenoscopy 2019 History of section x2 History of cholecystectomy Open cholecystectomy in her 20's History of total hysterectomy with bilateral salpingo-oophorectomy (BSO) with panniculectomy Hx of fusion of cervical spine Hx of gastric bypass in her early s at [facility], with additionally an appendectomy Status post reverse total replacement of left shoulder Family History Family History Father Family history of cardiovascular disease Malignant neoplasm of prostate Sibling Family history of malignant neoplasm of gastrointestinal tract Mother Family history of malignant neoplasm of ovary Social History Social History Smoking packs per day: 3 Smoking cigarettes per day: 60.0 Ye
[2021-10-28] MEDS: LACTATED RINGERS 1,000 ML 30 ML IV CONT ×2 (09:48→14:46)
--- NOTE | 2021-10-28 09:58 | SUR.PREOP ---
Informed patient surgery will be delayed till approx 11am. Voices understanding.
--- NOTE | 2021-10-28 11:41 | WPDHPUPDATE1 ---
History and Physical Update Update Date/Time: 10/28/21 11:41 History and Physical has been reviewed, including an updated exam of the patient. There are NO changes in the patient's condition. Risks, benefits, and alternatives have been discussed and questions answered. Patient agrees to proceed with procedure.
[2021-10-28] MEDS: ceFAZolin 2 GM/D5W 50 ML 2 GM/50 ML BAG IVPB (11:50)
[2021-10-28] MEDS: BUPIVACAINE/EPINEPHRINE 0.25% 50 ML VIAL 30 ML INFILTRATE (12:26)
[2021-10-28] MEDS: fentaNYL CITRATE INJ (*CRX) 100 MCG/2 ML VIAL 25 MCG IV PUSH ×4 (15:03→15:23)
--- NOTE | 2021-10-28 15:05 | W.PM.PROC2 ---
Procedure Note - Detailed Date of Procedure 10/28/21 Pre-op Diagnosis ventral incisional hernia Post-op Diagnosis Same (2. Plus, extensive adhesions with incarceration of omentum and a portion of colon in the hernia) Procedure Performed 1. Laparoscopic ventral incisional hernia repair with mesh 2. Laparoscopic lysis of adhesions for more than 1 hour in order to expose the hernia and reduce the colon and omentum from it. Surgeon Joel Hernandez MD [employer] Getter Berna GOLDEN, OR it assistant Anesthesia General Indications Patient had a recent episode of incarceration of colon in a 3.9 x 3.4 cm fascial defect just to the right of her upper midline incision/scar. We were able to reduce this with careful manipulation after pain medicine in the ED about 2 weeks ago. She then came to the office while wearing an abdominal binder to keep this from incarcerating again. She was able to go through a bowel prep and we planned for repair to prevent future incarceration and emergency surgery for bowel obstruction. Findings Patient had significant adhesions under the midline and beneath and inferior to the angle subcostal scar from her previous cholecystectomy. These took more than 1 hour to take down with careful blunt and sharp dissection. This exposed 1 large in 2 small fascial defects scattered across the right upper quadrant midline. Description of Procedure DESCRIPTION OF PROCEDURE: The patient was placed in the supine position on the operative table and after induction of adequate general endotracheal anesthesia by [facility], the entire abdomen was prepped and draped in usual sterile fashion. The head was placed slightly up. An OG tube was placed in the stomach and connected to suction. An Ioban drape was placed over the exposed part of the abdomen and used to prevent contact of the mesh with the skin during this clean case. A time-out was performed with the surgery team confirming patient and site of surgery. Following this, local anesthetic was placed in a spot selected about jail between the left costal margin and anterior superior iliac spine on the left side of the abdomen and a small incision made after instilling the local anesthetic using 0.25% Marcaine with epinephrine. Following this, a Veress needle technique using the water drop test was completed. Using 2 towel clips on the skin, I carefully elevated the skin and then passed the Veress needle into the abdomen such that we could see that the saline dropped through the Veress needle easily. CO2 gas was connected and the abdomen was insufflated to 15 mm Hg pressure with CO2 gas. Following this, the 0 degree 5 mm laparoscope was placed inside the 5 mm trocar, which was carefully twisted into the abdomen without difficulty, seeing a open pneumoperitoneum as we entered. Then, the trocar was removed, the sleeve confirmed to be nicely within the abdomen, and we carefully inspected the anterior abdomen. CO2 gas was connected to this port and adjusted to full flow of 15 mmHg pressure. Initial examination revealed most of the upper midline and right upper quadrant covered by adhesions and we were not able to see for sure the hernia. Most the lower abdomen from the level of the pubic bone inferiorly into the pelvis was also completely sealed off with adhesions. We did have a pretty good area of space in the left and mid lower abdomen. Therefore, I proceeded by placing a 12 mm port in the left lower quadrant under direct vision with the laparoscope. And then using the same technique made a small incision in the right lower quadrant and placed a 5 mm port. This gave us 2 working ports to begin the dissection and to do the repair. For most of the procedure we used a 30 degree angled 5 mm laparoscope. Careful inspection of the abdomen revealed no visible inguinal hernias. However, the sigmoid colon was covering the left groin area so this could not be carefully observed. (CT scan suggested a small fa
--- NOTE | 2021-10-28 15:12 | SUR.PHASEI ---
1512: Simple mask removed.
[2021-10-28] MEDS: traMADol HCL (*CRX) 50 MG TABLET PO (16:12)
== END 2021-10-28 17:03 | disposition home or self-care (01) ==
PROVIDERS: PCP Internal Medicine; Visit Provider Surgery
PROC: (CPT 49655; principal; 2021-10-28 10:30)
DX: K43.0 Incisional hernia with obstruction, without gangrene (principal); I10 Essential (primary) hypertension; E78.5 Hyperlipidemia, unspecified; E55.9 Vitamin D deficiency, unspecified; E53.8 Deficiency of other specified B group vitamins; F41.8 Other specified anxiety disorders; Z98.84 Bariatric surgery status; Z87.891 Personal history of nicotine dependence
CPT/HCPCS: 49655; 36415; 80053; 83735; 85025; 86850; 86900; 86901; 93005; A9270; C1781; J0690; J1100; J2405; J2704; J2710; J3010; J7120

== ENCOUNTER 2023-06-17 10:01 | Outpatient (CLI) | payer MEDICARE, SELFPAY ==
--- NOTE | ~2023-06-17 | DEXA_ITS ---
Bone Density Report Name: EVELYN RATLIFF Age: 73 Sex: Female Ethnicity: White Date of : 1950 Indication: postmenopausal; screening for osteoporosis; height loss; hysterectomy; Referring Provider: PETAR GONZALES Study: Bone densitometry was performed. Exam Date: June 17, 2023 Accession number: [id number] Bone Density: Region BMD T-score Z-score Classification AP Spine (L1-L4) 0.676 -3.4 -1.1 Osteoporosis Femoral Neck (Left) 0.418 -3.9 -1.9 Osteoporosis Total Hip (Left) 0.461 -3.9 -2.3 Osteoporosis Femoral Neck (Right) 0.390 -4.1 -2.2 Osteoporosis Total Hip (Right) 0.511 -3.5 -1.9 Osteoporosis Total Hip Mean 0.486 -3.7 -2.1 Osteoporosis World Health Organization criteria for BMD impression classify patients as: Normal (T-score at or above -1.0), Osteopenia (T-score between -1.0 and -2.5), or Osteoporosis (T-score at or below -2.5). 10-year Fracture Risk: FRAX not reported because: Some T-score for Spine Total or Hip Total or Femoral Neck at or below -2.5 Clinical Information Provided by Patient: Has used the following medications: Vitamin D, Calcium, MTV Has the following medical conditions: Hysterectomy Patient maximum height was 61.0 Menopause Age: 49 No regular weight bearing exercise Drinks caffeinated beverages Onset of menses at age 13 Number of children 2 Impression: The patient has osteoporosis, based on the Right Femoral Neck T-score. Discussion: HIGH RISK OF FRACTURE. BONE DENSITY IS UNDESIRABLY LOW AT ONE OR MORE SKELETAL SITES, CONSISTENT WITH OSTEOPOROSIS. ALSO, BONE DENSITY IS LOWER THAN EXPECTED FOR AGE AND SEX AT ONE OR MORE SKELETAL SITES; RECOMMEND A DILIGENT SEARCH FOR SECONDARY CAUSES OF BONE LOSS. This patient's lowest T-score meets the World Health Organization's (WHO) criteria for osteoporosis at one or more sites (T-score -2.5 or below). In untreated patients, the risk of osteoporotic fracture increases approximately two-fold for each 1.0 SD decrease in T-score. Low bone density is not the only risk factor for fracture; also consider factors such as patient's age, frailty or poor health, risk of falling, risk of injury, previous osteoporotic fracture, family history of osteoporosis, cigarette smoking, low body weight, etc. Not everyone with low bone mineral density has osteoporosis; osteomalacia and other metabolic bone disorders should also be considered. Patients who have osteoporosis should be evaluated for specific diseases and conditions (secondary causes) that may cause or contribute to bone loss. The [place] [employer]ocrinologists (AACE) and National Osteoporosis Foundation (NOF) recommend pharmacologic intervention for all postmenopausal women whose T-score is in this range. Also, this patient's bone mineral density is below the range considered normal f
--- NOTE | ~2023-06-17 | CT_ITS ---
Non-contrast CT scan of the Abdomen and Pelvis Clinical indication: Abdominal pain Technique: 2.5 mm axial scans were obtained through the abdomen and pelvis without intravenous or or al contrast. Dose reduction technique was used on this scan by utilizing automated exposure control a nd iterative reconstruction technique. The dose-length product (DLP) was 492.24 mGy-cm. COMPARISON: 10/08/2021 Findings: Images through the lung bases reveal no abnormalities. There is no evidence of renal or ureteral calculi. The kidneys and the ureters are nondilated. The liver, spleen, pancreas, and adrenals appear normal. Gallbladder absent. There are atheroscleroti c calcifications of the aorta. There is no evidence of bowel obstruction. Evidence of prior gastric or bariatric surgery. Images through the pelvis were performed. There is no evidence of ascites or lymphadenopathy. Urinary bladder unremarkable. No pelvic mass seen. No ascites. Minimal fat-containing bilateral inguinal her nias are present. There is mild loss of height L5, chronic in appearance. Impression: Minimal fat-containing bilateral inguinal hernias. Probable chronic mild loss of height of L5. Postoperative change, as above. Reviewed, dictated and finalized at location . Impression: Minimal fat-containing bilateral inguinal hernias. Probable chronic mild loss of height of L5. Postoperative change, as above.
== END 2023-06-17 10:02 ==
LOC: MICIMG 10:02
PROVIDERS: PCP Family Medicine; Visit Provider Nurse Practitioner
DX: R10.9 Unspecified abdominal pain (principal); Z98.890 Other specified postprocedural states; Z78.0 Asymptomatic menopausal state; K40.20 Bilateral inguinal hernia, without obstruction or gangrene, not specified as recurrent; M81.0 Age-related osteoporosis without current pathological fracture
CPT/HCPCS: 74176; 77080

== ENCOUNTER 2024-08-22 13:08 | Outpatient (CLI) | payer MEDICARE, SELFPAY ==
--- NOTE | ~2024-08-22 | XR_ITS ---
Upright and supine views of the abdomen Clinical history: Diarrhea Findings: Bowel gas pattern is nonspecific. No evidence for obstruction or free air. No abnormal mass lesion or calcification is seen. Abdominal suture line noted. Osseous structures are intact. Impression: Nonspecific bowel gas pattern. Reviewed, dictated and finalized at [facility]. Impression: Nonspecific bowel gas pattern.
== END 2024-08-22 13:09 | disposition home or self-care (01) ==
LOC: MICIMG 13:09
PROVIDERS: PCP Family Medicine; Visit Provider Family Medicine
DX: R14.0 Abdominal distension (gaseous) (principal)
CPT/HCPCS: 74019